=== PATIENT | male | born 2000 | race Hispanic/Latino ===

== ENCOUNTER 2021-04-27 15:20 | Emergency (ER) | payer OTHER ==
[~2021-04-27] VITALS: Ht 172.7 cm; Wt 79.4 kg
[2021-04-27] MEDS ORDERED: KETOROLAC 60 MG VIAL (30MG/ML) ONE (15:41)
[2021-04-27] MEDS ORDERED: DIAZEPAM 5 MG TABLET ONE (15:41)
[2021-04-27] MEDS ORDERED: HYDROCODONE/ACETAMINOPHEN 10/325 MG TAB ONE (15:41)
[2021-04-27] MEDS ORDERED: KETOROLAC 60 MG VIAL (30MG/ML) IM ONE (16:00)
[2021-04-27] MEDS ORDERED: DIAZEPAM 5 MG TABLET PO ONE (16:00)
[2021-04-27] MEDS ORDERED: HYDROCODONE/ACETAMINOPHEN 10/325 MG TAB PO ONE (16:00)
[2021-04-27 16:20] VITALS: BP 104/71
[2021-04-27] MEDS ORDERED: CYCL10TA16 PO (17:04)
[2021-04-27] MEDS ORDERED: IBUP-1552 PO (17:04)
== END 2021-04-27 17:11 | disposition home or self-care (01) ==
LOC: EDH 15:20
DX: S39.012A Strain of muscle, fascia and tendon of lower back, initial encounter (principal); Z79.1 Long term (current) use of non-steroidal anti-inflammatories (NSAID); W18.39XA Other fall on same level, initial encounter; Y93.89 Activity, other specified; Y92.89 Other specified places as the place of occurrence of the external cause; Y99.8 Other external cause status
CPT/HCPCS: 72131; 96372; 99284; J1885